=== PATIENT | female | born 1970 | race Caucasian/White ===

== ENCOUNTER 2018-08-29 16:03 | Emergency (ER) | payer SELFPAY ==
[~2018-08-29] VITALS: Ht 165.1 cm; Wt 74.8 kg
--- NOTE | 2018-08-29 16:28 | NUR ---
PT C/O GENERALIZED WEAKNESS AND UNSTEADY GAIT, STATING "I FEEL LIKE I'M GOING TO FALL OVER WHEN I WALK" BUT WITNESSED HER HAVING STEADY GAIT. PT REPORTS SYMPTOMS STARTED THIS AM. PT ALSO ENDORSES "KIDNEY PAIN" WITH HX OF UTI, BUT DENIES HEMATURIA/DYSURIA/FREQUENCY. RESP EVEN UNLABORED. SKIN WARM DRY. IN ER BED 14.
[2018-08-29 16:51] LABS: BASOPHILS # (AUTO) 0.1 /CMM (0.0-0.2); BASOPHILS % (AUTO) 0.7 % (0.0-2.0); EOSINOPHILS % (AUTO) 1.3 % (0.0-6.0); HEMATOCRIT 36 % (33-45); HEMOGLOBIN 12.7 g/dL (11.5-14.8); LYMPHOCYTES # (AUTO) 2.2 /CMM (0.8-4.8); LYMPHOCYTES % (AUTO) 27.7 % (20.0-44.0); MEAN CORPUSCULAR HGB CONC 35 g/dl (31.0-36.0); MEAN CORPUSCULAR VOLUME 83 fL (82-100); MONOCYTES # (AUTO) 0.4 /CMM (0.1-1.30); MONOCYTES % (AUTO) 5.1 % (2.0-12.0); NEUTROPHILS # (AUTO) 5.3 /CMM (1.8-8.9); NEUTROPHILS % (AUTO) 65.2 % (43.0-81.0); PLATELET COUNT (AUTO) 267 /CMM (150-450); RED BLOOD CELL COUNT(AUTO) 4.39 MIL/uL (4.0-5.2); WHITE BLOOD COUNT (AUTO) 8.1 K/uL (4.3-11.0)
[2018-08-29] MEDS ORDERED: IV LR 1000 ML 1,000 ML IV ONE (17:00)
[2018-08-29 17:12] LABS: CALCIUM, SERUM 9.4 mg/dL (8.5-10.1); CREATININE 0.8 mg/dL (0.6-1.3); POTASSIUM 3.7 mmol/L (3.5-5.1)
[2018-08-29 17:13] LABS: APPEARANCE,URINE Clear (CLEAR); BILIRUBIN,URINE Negative (NEGATIVE); BLOOD, URINE Trace-intact Ery/uL (NEGATIVE); COLOR,URINE Yellow (YELLOW); KETONES,URINE Negative (NEGATIVE); LEUKOCYTE ESTERASE ,URINE Small (NEGATIVE); NITRITE, URINE Negative (NEGATIVE); PROTEIN,URINE Negative (NEGATIVE); UGLUCOSE Negative (NEGATIVE); UROBILINOGEN,URINE 0.2 EU/dL (0.2)
[2018-08-29 17:30] LABS: BACTERIA,URINE Few /HPF (None Seen); SQUAMOUS EPITHELIAL CELL,UR Few /HPF (None Seen)
[2018-08-29 17:35] LABS: THYROID STIMULATING HORMONE 1.595 uIU/mL (0.358-3.74)
--- NOTE | 2018-08-29 17:36 | NUR ---
PT REFUSES HEAD CT. DINNER TRAY ORDERED FROM [place]
--- NOTE | 2018-08-29 18:15 | NUR ---
PT AMBULATED TO RESTROOM WITH STEADY GAIT.
--- NOTE | 2018-08-29 18:28 | NUR ---
PT STATES "I FEEL A LOT BETTER"
[2018-08-29] MEDS ORDERED: HEPATITIS B VIRUS VACCINE-PF 20 MCG/VIAL VIAL IM ONE (19:00)
--- NOTE | 2018-08-29 19:10 | NUR ---
PT NOTIFIED RN THAT SHE HAD HEP B VACCINE ADMINISTERED [address] CURRY, DO NOT ADMINISTER. VACCINE WAS ALREADY DRAWN UP, AND IS WASTED.
--- NOTE | 2018-08-29 19:12 | NUR ---
Patient discharged to home in stable condition. Written and verbal after care instructions given. Patient verbalizes understanding of instruction. IV removed. Catheter intact and site benign. Pressure and 4x4 applied to site. No bleeding noted.
[2018-08-29 19:18] VITALS: BP 144/77
== END 2018-08-29 19:18 | disposition home or self-care (01) ==
LOC: ER 16:09
DX: R53.1 Weakness (principal); R11.2 Nausea with vomiting, unspecified; R10.84 Generalized abdominal pain
CPT/HCPCS: 36415; 80048-TC; 81000-TC; 84443-TC; 84703-TC; 85025-TC; A9579; J7120